=== PATIENT | male | born 1955 | race Caucasian/White ===

== ENCOUNTER → 2024-03-04 07:43 | Outpatient (REF) | payer OTHER, SELFPAY | LOC: HWRAD 07:43 | PROVIDERS: ATTENDING PHYSICIAN Nurse Practitioner Adult Health | DX: K85.90 Acute pancreatitis without necrosis or infection, unspecified (principal) | CPT/HCPCS: 76700 ==

== ENCOUNTER 2024-11-20 07:49 | Emergency (ER) | payer OTHER, SELFPAY ==
[2024-11-20 07:55] VITALS: BP 202/127
--- NOTE | 2024-11-20 08:25 | ED.GENMED ---
History of Present Illness
General
Chief Complaint: Swelling
Time Seen by Provider: 11/20/24 08:25
History of Present Illness
History of Present Illness:
TIME OF INITIAL ENCOUNTER: 9:20 AM
HPI: The patient presents with abdominal pain that feels like 'a knot' as he points to the right upper quadrant and radiates to the back. He also has been having left greater than right lower extremity greater than upper extremity swelling. He
would not of come in here if it was not for the pain. He has chronic shortness of breath. He has had pancreatitis in the past but this not necessarily feel the same
EXAM:
GENERAL: Well appearing in no distress, elevated BMI, room air sats are 99%
HEENT: Moist oral mucosa
CARDIOVASCULAR: No murmurs, normal heart rate, regular rhythm, No chest wall tenderness
PULMONARY: No respiratory distress, breath sounds are clear and equal
ABDOMEN: Soft with no peritoneal signs, no tenderness
NEUROLOGIC: Excellent strength all extremities, no coordination deficits
PSYCHIATRIC: Appropriate mental status, normal insight and judgement
EXTREMITIES: Nontender, no edema, moves all extremities equally
SKIN: No rash, no lesions
NUMBER AND COMPLEXITY OF PROBLEMS ADDRESSED AT THE ENCOUNTER
� Chronic conditions affecting care: High blood pressure, has had PE, former smoker
� Acute Exacerbation and/or Progression of Chronic Illness: This is an acute problem
� Differential Diagnosis includes: Biliary colic, cholecystitis,
AMOUNT AND/OR COMPLEXITY OF DATA TO BE REVIEWED AND ANALYZED
� I performed an independent evaluation of and my interpretation is:
EKG: Sinus 69, anterior T wave abnormality, similar to 11/14/2020
CT:
X-rays: Chest x-ray shows some fluid versus scarring on the right which is chronic, chronic right hemidiaphragm elevation
Laboratory Studies: White count normal, hemoglobin normal, creatinine 1.4 slightly higher than prior, LFTs and lipase normal, BNP normal, troponin negative
Other: Ultrasound shows gallstones. Negative sonographic Castillo sign.
� Review of other/old records: Ultrasound from last February suggested gallbladder sludge with possible small gallstones. CT from last year showed sigmoid diverticulitis with normal gallbladder.
� Clinical information was obtained by an independent historian: Spoke to partner at bedside
� Prescriptions/Medications Considered but not given:
� Further testing considered but not performed: Considered CT for further evaluation including evaluation for AAA however CAT scan from February 2023 showed no AAA
RISK OF COMPLICATIONS AND/OR MORBIDITY OR MORTALITY OF PATIENT MANAGEMENT
� Social determinants of health affecting care: Lives at home
� Discussion with other providers:
� Escalation of care including admission/observation vs risk of discharge considered: Ultrasound imaging shows gallstones along with sludge. No evidence of infection of the gallbladder. The patient is to follow-up with general
surgery. He is not sure if he saw Dr. Mcintosh in person or not in the past. He was told that there were only questionable stones in the past and there was no plan for OR however today's workup does show gallstones.
ANY OTHER UPDATES:
On reassessment, the patient has virtually no complaints therefore we will plan discharge.
Past History
Past History
ED Past Medical History: HTN, Hypothyroidism and Other (Psoriasis, status post right knee replacement, obstructive sleep apnea, hypertension)
ED Past Surgical History: Orthopedic (Bilateral knee replacement)
Social History
Tobacco: Former smoker
Alcohol: Occasional
Drug: None
Personal: Single
Living: with family
Family History
Family History: Other (Grandparent with stroke, father with prostate cancer)
Phy Exam
Physical Exam
Physical Exam:
See HPI
Scores
Heart Failure Risk
Heart Failure Risk Score: Not Applicable
Course
Orders/Labs/Results
Orders:
Orders
11/20/24 07:58
Electrocardiogram (*1) Urgent
Reason for Study: Abdominal Pain
EKG- Treatment ONCE
11/20/24 08:27
CR Chest - 2 Views Urgent
Comment:
Reason For Exam: edema
11/20/24 08:49
Complete Blood Count/With Diff Urgent
Comprehensive Metabolic Panel Urgent
Lipase Urgent
NT-proBNP Urgent
Troponin I Urgent
11/20/24 10:47
US Abdomen Complete/Upper Urgent
Comment:
Reason For Exam: RUQ pain
US Legs, Bilateral [US Periph Venous LOWER Ext Lazarus] Urgent
Comment:
Reason For Exam: swelling
Abnormal Lab Results
11/20/24
08:49
RBC 4.42 L 10^6/uL
(4.70-6.10)
MCV 96.6 H fL
(80.0-94.0)
MCHC 32.1 L g/dL
(33.0-37.0)
Absolute Lymphs (auto) 0.7 L 10^3/uL
(1.2-3.4)
Absolute Monos (auto) 0.7 H 10^3/uL
(0.1-0.6)
Lymphocytes % 14.2 L %
(20.5-51.1)
Monocytes % 13.8 H %
(1.7-9.3)
Chloride 108 H mmol/L
(98-107)
Carbon Dioxide 34 H mmol/L
(22-30)
BUN 22 H mg/dl
(9-20)
Creatinine 1.4 H mg/dL
(0.7-1.3)
Glucose 115 H mg/dl
(70-99)
11/20/24 08:49
11/20/24 08:49
Vital Signs
Initial and Last Documented VS:
Initial Vital Signs
Temp Pulse Resp BP Pulse Ox
36.9 C 62 16 202/127 98
11/20/24 07:55 11/20/24 07:55 11/20/24 07:55 11/20/24 07:55 11/20/24 07:55
Last Documented Vital Signs
Temp Pulse Resp BP Pulse Ox
36.9 C 59 14 152/86 97
11/20/24 07:55 11/20/24 11:00 11/20/24 11:00 11/20/24 11:00 11/20/24 11:00
*Critical Care Note
Total Time (30-74mins, 75-104mins- exclusive of procedures): Not Applicable
ED Attending Note
-
Portions of this chart may have been created with voice recognition software.� Occasional wrong word or��sound alike� substitutions may have occurred due to the inherent limitations of voice recognition software.
Discharge Plan
Departure
Prescriptions:
No Action
levothyroxine 200 MCG tablet
200 mcg PO DAILY
furosemide
1 tab PO DAILY
metoprolol succinate
1.5 tab PO DAILY
valsartan
1 tab PO DAILY
Referrals:
Dane Davis DO [Family Provider, Family Practice]
Interventions
Interventions:
*Risk Screen - Suicide Last Done: 11/20/24 07:55
*General Assessment Last Done: 11/20/24 10:50
*Neglect/Abuse Screening Last Done: 11/20/24 07:55
*ED- Fall Risk Assessment Last Done: 11/20/24 10:50
*ED COVID-19 Vaccine History Last Done: 11/20/24 10:50
ED- Cardiac Assessment Last Done: 11/20/24 09:10
ED- Pulmonary Assessment Last Done: 11/20/24 09:10
ED-Skin Assessment Last Done: 11/20/24 09:10
Discharge Date and Time
Print Language: [place]
[2024-11-20 09:00] VITALS: BP 143/83
[2024-11-20 09:05] VITALS: BMI 51.7
[2024-11-20 09:05] LABS: % Basophils 0.2 % (0-2); % Eosinophils 4.9 % (0-6); % Immature Granulocytes 0.4 % (0-0.5); % Lymphocytes 14.2 % (20.5-51.1); % Monocytes 13.8 % (1.7-9.3); % Neutrophils 66.5 % (42.2-75.2); Absolute Eosinophils 0.3 10^3/uL (0-0.7); Absolute Lymphocytes 0.7 10^3/uL (1.2-3.4); Absolute Monocytes 0.7 10^3/uL (0.1-0.6); Absolute Neutrophils 3.4 10^3/uL (1.4-6.5); Hematocrit 42.7 % (39.0-52.0); Hemoglobin 13.7 g/dL (13.0-18.0); Mean Corp Hgb Conc. 32.1 g/dL (33.0-37.0); Mean Corpuscular Volume 96.6 fL (80.0-94.0); Mean Platelet Volume 9.6 fL (7.4-10.4); Nucleated Red Blood Cells % 0 % (-); Platelet Count 142 10^3/uL (130-400); Red Blood Cell Count 4.42 10^6/uL (4.70-6.10); Red Cell Dist. Width 13.2 % (11.5-14.5); White Blood Cell Count 5.1 10^3/uL (4.8-10.8)
[2024-11-20 09:29] LABS: ALT (SGPT) 22 U/L (0-50); AST (SGOT) 23 U/L (17-59); Alkaline Phosphatase 75 U/L (38-126); Blood Urea Nitrogen 22 mg/dl (9-20); Carbon Dioxide 34 mmol/L (22-30); Chloride 108 mmol/L (98-107); Estimated Creatinine Clearance 89 ml/min; Glucose 115 mg/dl (70-99); Lipase 78 U/L (23-300); Potassium 4.9 mmol/L (3.5-5.1); Sodium 142 mmol/L (135-145); Total Bilirubin 0.7 mg/dl (0.2-1.3); Total Protein 6.6 g/dl (6.3-8.2); eGFR 55.09
[2024-11-20 09:38] LABS: NT-proBNP 142 pg/ml; Troponin I < 0.012 ng/ml
[2024-11-20 10:00] VITALS: BP 143/86
[2024-11-20 11:00] VITALS: BP 152/86
[2024-11-20 13:54] VITALS: BP 174/98
== END 2024-11-20 14:10 | disposition home or self-care (01) ==
LOC: EMR 07:49
PROVIDERS: EMERGENCY PHYSICIAN Emergency Medicine; FAMILY PHYSICIAN Family Medicine
DX: R10.11 Right upper quadrant pain (principal); R06.02 Shortness of breath; M79.605 Pain in left leg; M79.604 Pain in right leg; R60.9 Edema, unspecified; I10 Essential (primary) hypertension; K80.20 Calculus of gallbladder without cholecystitis without obstruction; K57.32 Diverticulitis of large intestine without perforation or abscess without bleeding; E03.9 Hypothyroidism, unspecified; G47.33 Obstructive sleep apnea (adult) (pediatric); Z96.653 Presence of artificial knee joint, bilateral; Z86.711 Personal history of pulmonary embolism; Z87.19 Personal history of other diseases of the digestive system; Z87.891 Personal history of nicotine dependence; Z91.041 Radiographic dye allergy status
CPT/HCPCS: 99285; 71046; 76700; 80053; 83690; 83880; 84484; 85025; 93005; 93970

== ENCOUNTER 2025-05-05 06:05 | Day surgery (SDC) | payer OTHER, SELFPAY ==
[2025-05-05 07:10] VITALS: BMI 46.1
[2025-05-05 07:15] VITALS: BP 165/105
[2025-05-05 08:26] VITALS: BP 156/110
[2025-05-05 08:30] VITALS: BP 147/90
[2025-05-05 08:45] VITALS: BP 144/107
[2025-05-05 08:47] VITALS: BP 157/96
== END 2025-05-05 08:56 | disposition home or self-care (01) ==
LOC: SDS 06:05
PROVIDERS: ATTENDING PHYSICIAN Internal Medicine Gastroenterology
DX: Z12.11 Encounter for screening for malignant neoplasm of colon (principal); D12.2 Benign neoplasm of ascending colon; D12.4 Benign neoplasm of descending colon; D12.5 Benign neoplasm of sigmoid colon; K63.5 Polyp of colon; K57.30 Diverticulosis of large intestine without perforation or abscess without bleeding; K64.8 Other hemorrhoids; Z86.0100 Personal history of colon polyps, unspecified
CPT/HCPCS: 45385; 88305